=== PATIENT | male | born 1965 | race African-American/Black ===

== ENCOUNTER 2016-11-13 16:08 | Emergency (ER) | payer SELFPAY ==
--- NOTE | ~2016-11-13 | ER ---
PATIENT'S NAME: EMMA CASEY [facility] AGE: 51 Y [address] ROOM: [place] [id number] LOCATION: ED ADMIT DATE: 11/13/2016 ER/Outpatient Report DISCHARGE DATE: 11/13/2016 FAMILY PHYSICIAN: PHYSICIAN, NO ATTENDING PHYSICIAN: Abiodun Pinto Time of Arrival: 1619 hours. Time of Exam: 1619 hours. CHIEF COMPLAINT: Toothache. HISTORY OF PRESENT ILLNESS: The patient states yesterday he developed pain of the left lower denture area. Reports the pain has gotten a lot worse today, has pain on the whole left side of his face. States he ran out of Lyrica 3 days ago. Does have some tingling of his hands, history of diabetes. He [facility]. ALLERGIES: NO KNOWN ALLERGIES. CURRENT MEDICATIONS: On the chart and reviewed by me. PAST MEDICAL HISTORY: Insulin-dependent diabetes, dental caries, hypertension, neuropathy. PAST SURGERIES: Hernia. SOCIAL HISTORY: He presents to the ER accompanied by his daughters, smokes half pack per day. Drinks alcohol on an occasional basis. Denies use of drugs. REVIEW OF SYSTEMS: All negative other than those mentioned in the HPI. PHYSICAL EXAMINATION: VITAL SIGNS: He weighs 112 kg, blood pressure is 178/105, pulse is 78, respirations 20, temperature of 97, O2 saturation was 93% on room air. GENERAL: The patient is awake, alert, and oriented x4. SKIN: [place], warm, and dry. RESPIRATIONS: Even and nonlabored. The patient has multiple teeth that are broken off on the left lower denture. He is tender to palpate on the left PATIENT'S NAME: EMMA CASEY [facility] AGE: 51 Y [address] ROOM: [place] [id number] LOCATION: [facility] ADMIT DATE: 11/13/2016 ER/Outpatient Report DISCHARGE DATE: 11/13/2016 FAMILY PHYSICIAN: PHYSICIAN, NO ATTENDING PHYSICIAN: Abiodun Pinto side of his face. HEENT: TMs are normal. Nasal is boggy. NECK: Supple. No lymphadenopathy. LUNGS: Lung sounds were clear throughout. HEART: Regular rate and rhythm. EMERGENCY DEPARTMENT COURSE: The patient was offered Belle Rose 5/325 x2 tablets. His daughter who is with him is not able to drive, so he refused the tablets. LABORATORY DATA AND X-RAYS: Lab work was drawn. Accu-Chek was 178. CBC is within normal limits. Chem panel is within normal limits. IMPRESSION: Infected teeth and dental caries. PLAN: Home, rest. Soft foods. Rinse his mouth frequently. Continue to use current medications. Prescription was given for [place] Rose for pain, cephalexin for antibiotic, and Lyrica for his neuropathy. He is to follow up with his primary provider in the next 2-3 days for refills of his medicines. See a dentist within the next 2-3 days. He verbalized understanding. STEPH GILBERT APRN FOR MD CUONG GARBER/hasmukh /[id number] d: 11/14/16 0148 t: 11/22/16 1934, OUTPATIENT REPORT
[2016-11-13 16:41] LABS: BASOPHIL % 0.5 %; EOSINOPHIL # 0.8 K/uL (0.0-0.5); EOSINOPHIL % 10.1 %; HEMATOCRIT 43.2 % (37.0-53.0); HEMOGLOBIN 14.7 g/dL (12.0-17.0); IMMATURE GRANULOCYTE % 0.1 %; LYMPHOCYTE # 3.9 K/uL (0.8-4.0); LYMPHOCYTE % 47.3 %; MCH 29.4 pg (27.0-34.0); MCV 86.4 fl (83.0-98.0); MONOCYTE # 0.8 K/uL (0.0-1.0); MONOCYTE % 10.1 %; MPV 9.2 fl (9.4-12.4); NEUTROPHIL # (ANC) 2.6 K/uL (1.4-9.0); NEUTROPHIL % 31.9 %; NRBC % 0 /100WBC (0-0.00); PLATELET COUNT 233 K/uL (150-450); RDW-CV 16.2 % (11.9-14.6); WBC 8.2 K/uL (4.0-11.0)
[2016-11-13 16:57] LABS: ALBUMIN 3.4 gm/dL (3.5-5.0); ANION GAP 12.2 (10.0-19.0); CALCIUM 8.6 mg/dL (8.5-10.5); CREATININE 1.3 mg/dL (0.6-1.3); POTASSIUM 4.2 mMol/L (3.7-5.1); TOTAL BILIRUBIN 0.5 mg/dL (0.0-1.5); TOTAL PROTEIN 7.9 g/dL (6.0-8.4)
== END 2016-11-13 17:12 | disposition disaster alternative care site (69) ==
LOC: GMED 16:08
PROVIDERS: Nurse Practitioner Family
DX: K04.7 Periapical abscess without sinus (principal); K02.9 Dental caries, unspecified; I10 Essential (primary) hypertension; E11.40 Type 2 diabetes mellitus with diabetic neuropathy, unspecified; Z98.890 Other specified postprocedural states; Z79.899 Other long term (current) drug therapy; Z79.4 Long term (current) use of insulin